=== PATIENT | male | born 1970 | race Caucasian/White ===

== ENCOUNTER 2023-11-14 01:26 | Emergency (ER) | payer BC, SELFPAY ==
[2023-11-14] VITALS (7 sets, daily range): BP systolic 119–144; BP diastolic 67–99; PULSE 63–81; RESP 16–19; O2SAT 98–100
--- NOTE | ~2023-11-14 | XR_ITS ---
EXAMINATION: XR chest 1V portable DATE: 11/14/2023 02:02 INDICATION: Chest pain and tightness TECHNIQUE: AP view of the chest was obtained. COMPARISON: Chest CT dated 11/14/2023 FINDINGS: No evident airspace opacities, pulmonary edema, pleural effusion or pneumothorax. A lingular region o f consolidation consistent with pneumonia seen on subsequent CT projects over the left hilum and is i ndiscernible on the current AP radiograph. The cardiomediastinal silhouette is normal. Mild thoracic dextrocurvature with mild spondylosis. IMPRESSION: 1. Lingular pneumonia seen on subsequent chest CT is indiscernible on the current radiograph. Reviewed, dictated and finalized at location A. IMPRESSION: 1. Lingular pneumonia seen on subsequent chest CT is indiscernible on the [facility] nt radiograph.
--- NOTE | ~2023-11-14 | CT_ITS ---
EXAMINATION: CTA chest PE abdomen pel DATE: 11/14/2023 03:58 INDICATION: Chest tightness. Elevated lipase. TECHNIQUE: Computed tomography (CT) pulmonary angiogram of the chest was performed with 100 mL Omnipa que-350 intravenous contrast. Additional 3D reconstructions utilizing coronal maximum intensity proje ction (MIP) were performed. CT of the abdomen and pelvis was performed with intravenous contrast util izing the same contrast bolus following a short delay. Automated exposure control and iterative recon struction technique were employed. The dose-length product was 1075.34 mGy-cm. COMPARISON: None FINDINGS: Chest: Excellent contrast opacification of the pulmonary arteries demonstrating no pulmonary embolism. Mild groundglass opacity and a few small centrilobular nodules along side a small region of consolidation in the paramediastinal superior segment of the lingula consistent with pneumonia. Remainder of the julieta ngs are clear. No pulmonary edema or pleural effusion. Heart size is normal. Thoracic aorta is normal in caliber with no dissection. No pathologically enlarged thoracic lymphadenopathy. Mild thoracic sp ondylosis with chronic mild anterior wedging of a few mid and lower thoracic vertebral bodies. Abdomen/pelvis: Liver, gallbladder, spleen, pancreas, bilateral adrenal glands and kidneys are normal. Incidentally n oted circumaortic anterior and posterior left renal veins. Bowels including the appendix are normal. Bladder is normal. Prostatomegaly measuring 5.0 x 3.3 cm. No free intraperitoneal gas or fluid. No pa thologically enlarged abdominal or pelvic lymphadenopathy. Mild thoracolumbar levocurvature with mild to moderate spondylosis. IMPRESSION: 1. Lingular pneumonia. 2. No pulmonary embolism or acute intra-abdominal/pelvic process. Reviewed, dictated and finalized at location A.
--- NOTE | 2023-11-14 01:33 | ECG_ITS ---
Test Date: 2023-11-14 01:44:20 Measurements Intervals [place] Rate: 74 P: 0 NE: 0 QRS: 85 QRSD: 91 T: 41 QT: 360 QTc: 402 Interpretive Statements SUPRAVENTRICULAR RHYTHM ATYPICAL ECG No previous ECG available for comparison Electronically Signed On 11-14-2023 11:21:11 CDT by Carlin Kimbrough M.D.
[2023-11-14] MEDS: ASPIRIN 81 MG CHEWABLE TABLET 324 MG PO (01:49)
[2023-11-14 01:58] LABS: Alanine Aminotransferase 29 U/L (6-50); Albumin Level 4.6 g/dL (3.5-5.1); Alkaline Phosphatase 72 U/L (38-126); Anion Gap 7 mmol/L (4-12); Aspartate Amino Transferase 33 U/L (17-59); Blood Urea Nitrogen 18 mg/dL (9-20); Calcium 9.3 mg/dL (8.4-10.2); Carbon Dioxide 28 mmol/L (22-30); Chloride 103 mmol/L (98-107); Estimated CRCL calculation 97 ml/min; Estimated Glomerular Filt Rate > 60; Glucose 105 mg/dL (65-110); Lipase 423 U/L (23-300); Potassium 4.4 mmol/L (3.4-5.0); Sodium 138 mmol/L (137-145)
[2023-11-14 02:04] LABS: Prothrombin Time 13.8 Seconds (11.1-14.7)
[2023-11-14 02:05] LABS: Partial Thromboplastin Time 31.7 Seconds (22.3-36.8)
[2023-11-14 02:09] LABS: Troponin I < 0.012 ng/mL (0.000-0.034)
[2023-11-14 02:49] LABS: Basophils Absolute Auto 0.1 K/mm3 (0.0-0.1); Basophils Percent Auto 0.4 % (0.2-1.2); Eosinophils Absolute Auto 0.3 K/mm3 (0-0.3); Eosinophils Percent Auto 2.3 % (0-4.4); Hematocrit 40.4 % (42.0-52.0); Hemoglobin 13.9 g/dL (14.0-18.0); Immature Granulocyte Absolute 0.05 K/mm3 (0.00-0.031); Immature Granulocyte Percent A 0.4 % (0-0.5); Lymphocytes Absolute Auto 1.71 K/mm3 (0.9-3.2); Lymphocytes Percent Auto 12.4 % (18.3-44.2); Mean Corpuscular HGB Conc 34.4 g/dl (32-36); Mean Corpuscular Hemoglobin 30.8 pg (26-34); Mean Corpuscular Volume 89.6 fl (80-100); Mean Platelet Volume 9.7 fl (7.4-10.4); Monocytes Absolute Auto 1.5 K/mm3 (0.1-0.6); Monocytes Percent Auto 10.8 % (2.6-8.5); Neutrophils Absolute Auto 10.1 K/mm3 (1.3-6.7); Neutrophils Percent Auto 73.7 % (45.5-73.1); Platelet Count Result 60 k/mm3 (150-375); Red Blood Count 4.51 M/mm3 (4.6-6.20); Red Cell Distribution Width 12.2 % (11.5-14.5); White Blood Count 13.7 K/mm3 (4.5-10.0)
--- NOTE | 2023-11-14 03:48 | ED.GENADULT ---
HPI - General Adult General Chief complaint: Chest Pain <Braden Oconnell MD - Last Filed: 11/14/23 03:49> Stated complaint: chest pain <Braden Oconnell MD - Last Filed: 11/14/23 03:49> Time Seen by Provider: 11/14/23 01:41 <Braden Oconnell MD - Last Filed: 11/14/23 03:49> History of Present Illness HPI narrative: Patient is a 53-year-old gentleman presents emergency department with chief complaint of chest pain. Patient reports that around 11:00 p.m. he started having tightness in his chest patient reports he has been doing a lot more exercise lately did some chest work patient reports no prior history of cardiac disease but does report that he has history of hypertension. The patient reports some has been several years since he has had a stress test the patient rib does report the pain is doing little bit better now that he is here in the emergency department. <Bradne Oconnell MD - Last Filed: 11/14/23 03:49> Related Data Home medications: Home Medications Medication Instructions Recorded Confirmed fluticasone propionate 50 1 spray intranasal BID 10/26/23 10/26/23 mcg/actuation nasal spray,suspension (Flonase Allergy Relief) <Braden Oconnell MD - Last Filed: 11/14/23 03:49> Allergies/adverse reactions: Allergies Allergy/AdvReac Type Severity Reaction Status Date / Time No Known Allergies Allergy Verified 10/26/23 08:15 <Braden Oconnell MD - Last Filed: 11/14/23 03:49> Review of Systems Review of Systems: A 10 system review of systems was completed on the patient and is negative except for what is stated in the HPI. Nursing and ancillary documentation was reviewed. <Braden Oconnell MD - Last Filed: 11/14/23 03:49> PMFSH Past Medical History Medical History: Medical History Elevated WBC count Encounter for wellness examination Encounter to establish care Essential (primary) hypertension Impacted cerumen of left ear Long-term current use of testosterone replacement therapy Male erectile dysfunction, unspecified Otitis media with effusion Rising PSA level Skin lesions Testicular hypogonadism <Braden Oconnell MD - Last Filed: 11/14/23 03:49> Surgical History Surgical History: Surgical History H/O hernia repair History of placement of ear tubes <Braden Oconnell MD - Last Filed: 11/14/23 03:49> Family History Family History: Family History Sibling Hypertension Father Bladder cancer Other Diabetes mellitus <Braden Oconnell MD - Last Filed: 11/14/23 03:49> Social History Social History: Social History Smoking status: Never smoker Second hand tobacco smoke exposure: No Alcohol intake: never Substance use: never Substance use type: does not use Lack of Transportation: No Lack of Food: Never True Current Housing: I Have Housing Concerned About Future Housing: No Difficulty Paying Gas/Electric Bills: No Difficulty Paying for Meds: No Currently Unemployed: No Education: Associate Degree Difficulty w/ Childcare or Family Care: No <Braden Oconnell MD - Last Filed: 11/14/23 03:49> Exam Narrative: GENERAL: Well-appearing, well-nourished, and in no acute distress. HEAD: Normocephalic, atraumatic. EYES: PERRLA and EOMI. ENT: Nares clear, no rhinorrhea or epistaxis. Mucous membranes moist. NECK: Supple. CHEST: Clear to auscultation. No respiratory distress. HEART: Regular rate and rhythm. No murmur heard. Normal peripheral pulses. ABDOMEN: Soft, nontender, nondistended, normal active bowel sounds. EXTREMITIES: Normal range of motion. No edema. SKIN: Wa
--- NOTE | 2023-11-14 04:18 | ECG_ITS ---
Test Date: 2023-11-14 04:25:45 Measurements Intervals [place] Rate: 65 P: 55 GA: 263 QRS: 86 QRSD: 84 T: 52 QT: 366 QTc: 381 Interpretive Statements SINUS RHYTHM WITH FIRST DEGREE AV BLOCK Compared to ECG 11/14/2023 01:44:20 NO CHANGE SINCE PREVIOUS ECG Electronically Signed On 11-14-2023 11:22:00 CDT by Carlin Kimbrough M.D.
[2023-11-14 04:47] LABS: Troponin I < 0.012 ng/mL (0.000-0.034)
[2023-11-14] MEDS: AMOXICILLIN/CLAVULANATE K 875-125 MG TAB 1 TABLET PO (07:36)
[2023-11-14] MEDS: AZITHROMYCIN 250 MG TABLET 500 MG PO (07:36)
== END 2023-11-14 07:37 | disposition home or self-care (01) ==
PROVIDERS: Emergency Provider Emergency Medicine; PCP Nurse Practitioner Family
DX: J18.9 Pneumonia, unspecified organism (principal); I10 Essential (primary) hypertension
CPT/HCPCS: 36415; 71045; 71275; 74177; 80053; 83690; 84484; 85025; 85055; 85610; 85730; 93005; 99284; A9270; Q9967

== ENCOUNTER 2024-12-13 10:52 | Outpatient (CLI) | payer BC, SELFPAY ==
--- OUTSIDE RECORDS SUMMARY | 2024-12-13 10:57 | XMS_ITS | Clinical Summary ---
Author Organization [facility]iz Address [address] [facility] [place] [address] Care Team Providers Care Ecdis N Navigation Operator Name Role Phone Unavailable Primary Care Provider Unavailabl e Allergies No known active allergies Medications valsartan (DIOVAN) 160 mg tablet Take 1 Tablet by mouth daily. 10/24/2024 Active sildenafiL (VIAGRA) 100 mg tablet Take 100 mg by mouth 1 time daily as needed for Erectile Dysfunction. Active multivitamin (DAILY-EDU) tablet Take 1 Tablet by mouth daily. Active OMEGA-3 FATTY ACIDS-FISH OIL ORAL Take by mouth daily. Active Active Problems No known active problems Encounters Date Type Department Care Team Description 12/13/2024 10:30 AM CDT Office Visit [facility] Oncology and Hematology - [place] [address] [address] Alonso Cisneros MD Chronic anemia (Primary Dx); Other secondary thrombocytopenia; Splenomegaly from Last 3 Months Family History Medical History Relation Name Comments No Known Problems Brother bladder cancer Father No Known Problems Mother Relation Name Status Comments Brother Alive Father Mother Alive Social History Tobacco Use Types Packs/Day Years Used Date Smoking Tobacco: Never Smokeless Tobacco: Never Tobacco Cessation:Counseling Given: Not Answered Alcohol Use Standard Drinks/Week Comments Never 0 (1 standard drink = 0.6 oz pur e alcohol) Sex and Gender Information Value Date Recorded Sex Assigned at Not on file Legal Sex Male 3:54 PM CDT Gender Identity Not on file Sexual Orientation Not on file Last Filed Vital Signs Vital Sign Reading Time Taken Comments Blood Pressure 123/77 12/13/2024 10:11 AM CDT Pulse 58 12/13/2024 10:11 AM CDT Temperature 36.6 C (97.8 F) 12/13/2024 10:11 AM CDT Respiratory Rate 16 12/13/2024 10:11 AM CDT Oxygen Saturation 97% 12/13/2024 10:11 AM CDT Inhaled Oxygen Concentration - - Weight 89.4 kg (197 lb 3.2 oz) 12/13/2024 10:11 AM CDT Height 190.5 cm (6' 3) 12/13/2024 10:11 AM CDT Body Mass Index 24.65 12/13/2024 10:11 AM CDT Plan of Treatment Upcoming Encounters Date Type Department Care Team (Late st Contact Info) Description 12/29/2024 4:30 PM CDT Telephone Check Up [facility] Oncology and Hematology - [place] [address] [facility] [address] [place] [address] Alonso Cisneros MD [address] [facility] [address] [place] [address] Health Maintenance Due Date Last Done Comments DTAP/TDAP/TD VACCINES (1 - Tdap) 1987 HEPATITIS B VACCINES (1 of 3 - 19+ 3-dose series) 02/16 COLORECTAL SCREENING 2013 Colorectal Cancer Screening 2013 FIT-DNA Q 3 years 2013 FIT/FOBT Q 1 year 2013 Flex Sig/CT Colonography Q 5 years 2013 ZOSTER VACCINE (1 of 2) 2018 Preventative Visit- Commercial 05/18/2024 INFLUENZA VACCINE (#1) 2024 02/18/2019 Insurance [facility]
--- OUTSIDE RECORDS SUMMARY | 2024-12-13 10:57 | XMS_ITS | Clinical Summary ---
Author Organization [facility] Health Address [address] [place] [address] Care Team Providers Care Regulatory And Compliance Technician Name Role Phone Unavailable Primary Care Provider Unavailabl e Social History Tobacco Use Types Packs/Day Years Used Date Smoking Tobacco: Never Assessed Sex and Gender Information Value Date Recorded Sex Assigned at Not on file Legal Sex Male 12:42 AM PST Gender Identity Not on file Sexual Orientation Not on file Plan of Treatment Not on file
--- OUTSIDE RECORDS SUMMARY | 2024-12-13 10:57 | XMS_ITS | Clinical Summary ---
Author Organization [facility] Address [address] [place] [address] Care Team Providers Care Mold Construction Supervisor Name Role Phone Unavailable Primary Care Provider Unavailabl e Social History Tobacco Use Types Packs/Day Years Used Date Smoking Tobacco: Never Assessed Sex and Gender Information Value Date Recorded Sex Assigned at Not on file Legal Sex Male 7:36 PM CDT Gender Identity Not on file Sexual Orientation Not on file Plan of Treatment Health Maintenance Due Date Last Done Comments Colorectal Cancer Screening Colonoscopy (10 Years) 1968 Annual Physical 1971 Hepatitis C 1986 DTaP, Tdap and Td Vaccines ( 1 - Tdap) 1987 Hepatitis B Vaccines (1 of 3 - 19+ 3-dose series) 1987 Pneumococcal Vaccine: 50+ Ye ars (1 of 1 - PCV) 2018 Zoster Vaccines (1 of 2) 2018 COVID-19 Vaccine (2023-2 5 season) 2024 Meningococcal B Vaccine Aged Out No l onger eligible based on patient's age to complete this topic Meningococcal Vaccine Aged Out No vilma dru eligible based on patient's age to complete this topic RSV Immunizations Under 20 Months Aged Out No longer eligible based on patient's age to complete this topic
--- OUTSIDE RECORDS SUMMARY | 2024-12-13 10:57 | XMS_ITS | Encounter Summary ---
Author Organization [facility] SHREE Colbert [facility] Address [address] [place] [address] Care Team Providers Care Citrus Fruit Packer Name Role Phone Unavailable Primary Care Provider Unavailabl e Reason for Referral * CT Scan (Routine) - Pending Review Specialty Diagnoses / Procedures Referred By Mario t Referred To Contact Diagnoses Other secondary thrombocytopenia Splenomegaly Procedures CT ABDOMEN PELVIS W CONTRAST Alonso Cisneros MD [address] [place] [address] Phone: tel: fax: [place] [phone] Referral ID Status Reason Start Date Expiration Date Visits Requested Visits Authorized [id number] Pending Review [facility] CTS 12/13/2024 01/13/2026 1 1 Encounter Details Date Type Department Care Team (Late st Contact Info) Description 12/13/2024 10:30 AM CDT Office Visit [facility] Oncology and Hematology [facility] [address] [facility] [address] [place] [address] Alonso Cisneros MD [address] [place] [address] Chronic anemia (Primary Dx); Other secondary thrombocytopenia; Splenomegaly Social History Tobacco Use Types Packs/Day Years [...] on file Sexual Orientation Not on file documented as of this encounter Last Filed Vital Signs Vital Sign Reading [...] Mass Index 24.65 12/13/2024 10:11 AM CDT documented in this encounter Plan of Treatment Upcoming Encounters Date Type Department Care Team (Late st Contact Info) Description 12/29/2024 4:30 PM CDT Telephone Check Up [facility] Oncology and Hematology - [place] [address] [place] [address] [address] [place] [address] Alonso Cisneros MD [address] [facility] [address] [place] [address] Scheduled Orders Name Type Priority Associated Diagnoses Orde r Schedule CBC WITH DIFFERENTIAL Lab Stat Chronic anemia Expected: 12/13/2024, Expires: 12/13/2025 COMPREHENSIVE METABOLIC PANEL Lab Stat Chronic anemia Expected: 12/13/2024, Expires: 12/13/2025 FERRITIN Lab Routine Chronic anemia Expected: 12/13/2024, Expires: 12/13/2025 IRON, TIBC, AND PERCENT SATURATION Lab Routine Chronic anemia Expected: 12/13/2024, Expires: 12/13/2025 VITAMIN B12 AND FOLATE Lab Routine Chronic anemia Expected: 12/13/2024, Expires: 12/13/2025 METHYLMALONIC ACID Lab Routine Chronic anemia Expected: 12/13/2024, Expires: 12/13/2025 TRANSFERRIN RECEPTOR TFR SOLUBLE Lab Routine Chronic anemia Expected: 12/13/2024, Expires: 12/13/2025 MISCELLANEOUS LAB TEST Lab Routine Other secondary thrombocytopenia Expected: 12/13/2024, Expires: 12/13/2025 CT ABDOMEN PELVIS W CONTRAST Imaging Routine Other secondary thrombocytopenia Splenomegaly Expected: 12/14/2024, Expires: 12/13/2025 documented as of this encounter Visit Diagnoses Diagnosis Chronic anemia- Primary Anemia, unspecified Other secondary thrombocytopenia Splenomegaly documented in this encounter
--- OUTSIDE RECORDS SUMMARY | 2024-12-13 10:57 | XMS_ITS | Encounter Summary ---
Author Organization [facility] Address [address] [place] [address] Care Team Providers Care Door Clamper Name Role Phone Unavailable Primary Care Provider Unavailabl e Encounter Details Date Type Department Care Team (Late st Contact Info) Description 01/02/2022 Lab Requisition [facility] DermPath Lab [address] [facility] [place] [address] Baljeet Lindquist MD [address] [place] [address] Social History Tobacco Use Types Packs/Day Years Used Date Smoking Tobacco: Never Assessed Sex and Gender Information Value Date Recorded Sex Assigned at Not on file Legal Sex Male 12:51 PM CDT Gender Identity Not on file Sexual Orientation Not on file documented as of this encounter Plan of Treatment Not on file documented as of this encounter Procedures Procedure Name Priority Date/Time Associated Diagnosis Comments DERMATOPATHOLOGY Routine 01/01/2022 12:0 0 AM CDT documented in this encounter Results * DERMATOPATHOLOGY (01/01/2022 12:00 AM CDT) Case Report Dermatopathology Report Case: [id number] Authorizing Provider: Baljeet Lindquist MD Collected: 01/01/2022 12:00 AM Ordering Location: [facility] DermPath Lab Received: 01/02/2022 01:04 PM Pathologist: Tim Rodas MD Specimen: Skin, sup edge left areola 2 5:09 PM CDT DERMATOPATHOLOGY LABORATORY Final Diagnosis Specimen A. 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 The specimen consists of a punch biopsy measuring [id number] and it is bisected. Jar 0. 2 5:09 PM CDT DERMATOPATHOLOGY LABORATORY Microscopic Description Specimen A. SKIN, sup edge left areola: Sections show a proliferation of blood vessels in lobules lined by uniform endothelial cells and by fibrous septa. 2 5:09 PM CDT DERMATOPATHOLOGY LABORATORY Disclaimer An external and internal positive and negative controls are appropriate for the histochemical, immunohistochemical and immunofluorescence stain(s) in this case (if any), except where stated explicitly. The performance characteristics of the stain(s) cited in this report were developed and its performance characteristic determined by the Dermatopathology Laboratory at [facility], directed by Dr. Tato Rodas. These tests need not be, and therefore are not, approved by the [place] Food and Drug Administration. The tests are used for clinical purposes. Billing Codes Specimen Charges Stain Charges 00699 1 2 5:09 PM CDT DERMATOPATHOLOGY LABORATORY Embedded Images 2 5:09 PM CDT DERMATOPATHOLOGY LABORATORY Pathology/Cytolog y TISSUE SPECIMEN FROM SKIN / Unknown 01/01/2022 01/02/2022 1:04 PM CDT Baljeet Lindquist MD LAB - PATHOLOGY/CYTOLOGY ORD ERABLES Final Result DERMATOPATHOLOGY LABORATORY [facility] - Department of Dermatology [address] [place] [address], [facility] [phone] documented in this encounter Visit Diagnoses Not on filedocumented in this encounter
--- OUTSIDE RECORDS SUMMARY | 2024-12-13 10:57 | XMS_ITS | Encounter Summary ---
Author Organization [facility] Health Address [address] [place] [address] Care Team Providers Care Senior Policy Analyst Name Role Phone Unavailable Primary Care Provider Unavailabl e Prior Encounters Date Type Department Care Team Description 06/06/2019 Converted CPS Chart Documents [facility] [address] [place] [address] <No scans attached> 06/06/2019 Converted 13x Documents [facility] [address] [place] [address] <No scans attached> Plan of Treatment Not on file Procedures Procedure Name Priority Date/Time Associated Diagnosis Comments PERIO CONSULT Routine 04/07/2018 2:00 AM SALT MAKER 20 FREE SOFT TISSUE GRAFT PROCEDUREEACH ADDITIONAL CONTIGUOUS SITE Routine 04/07/2018 2:00 AM SALT MAKER 19 FREE SOFT TISSUE GRAFT PROCEDUREFIRST TOOTH, IMPLANT OR EDENTULOUS TOOTH POSITION IN GRAFT Routine 04/07/2018 2:00 AM SALT MAKER Visit Diagnoses Not on file
--- OUTSIDE RECORDS SUMMARY | 2024-12-13 10:57 | XMS_ITS | Clinical Summary ---
Author Organization [facility] Address [address] [place] [address] Care Team Providers Care Optometrist Assistant Name Role Phone Unavailable Primary Care Provider Unavailabl e Source Comments [facility],non-owned Affiliates and Associated Physician Practices is amultiple site organization consisting of ambulatory clinics and hospital sitesin [place], [place], [place] and [place]. This disclosure is being madepursuant to the Care Everywhere program and may not contain all information available regarding this patient. Last updated 18.[facility] Social History Tobacco Use Types Packs/Day Years Used Date Smoking Tobacco: Never Assessed Sex and Gender Information Value Date Recorded Sex Assigned at Not on file Legal Sex Male 12:51 PM CDT Gender Identity Not on file Sexual Orientation Not on file Plan of Treatment Health Maintenance Due Date Last Done Comments COLOGUARD (AGES 45-75) - COL ON CA SCREENING 1968 COLON MONITORING 1968 COLONOSCOPY - COLON CA SCREENING 1968 CT COLONOGRAPHY - COLON CA SCREENING 1968 Colorectal Cancer Screening 1968 FIT - COLON CA SCREENING 1968 FLEX SIG - COLON CA SCREENING 1968 LIPID TESTING 1968 HIV SCREENING 1983 HEPATITIS C SCREENING 03/02/1986 DTAP/TDAP/TD VACCINES (1 - Tdap) 1987 HEPATITIS B VACCINE (1 of 3 - 19+ 3-dose series) 1987 PNEUMOCOCCAL VACCINE 50+ (1 of 1 - PCV) 2018 ZOSTER VACCINE (1 of 2) 2018 COVID-19 VACCINE ( - 2023-2 5 season) 2024 DEPRESSION SCREENING 05/18/2024 INFLUENZA VACCINE (#1) 2025 HIB VACCINE Aged Out No longer eligi ble based on patient's age to complete this topic HPV VACCINE Aged Out No longer eligi ble based on patient's age to complete this topic MENINGOCOCCAL (Group B) VACC INE SHARED DECISION-MAKING Aged Out No longer eligibl e based on patient's age to complete this topic MENINGOCOCCAL GROUPS A/C/Y/W VACCINE Aged Out No longer eligible b ased on patient's age to complete this topic Insurance
[2024-12-13 11:22] LABS: Hematocrit 46.1 % (42.0-52.0); Hemoglobin 15.9 g/dL (14.0-18.0); Immature Granulocyte Percent A 0.5 % (0-0.5); Immature Platelet Fraction Pct 4.4 % (0.9-11.2); Lymphocytes Absolute Auto 2.26 K/mm3 (0.9-3.2); Mean Corpuscular HGB Conc 34.5 g/dl (32-36); Mean Corpuscular Hemoglobin 30.9 pg (26-34); Mean Corpuscular Volume 89.7 fl (80-100); Nucleated Red Blood Cells Absolute Auto 0.000 K/mm3 (0.0-0.012); Nucleated Red Blood Cells Perc 0.0 % (0.0-0.2); Platelet Count Result 57 k/mm3 (150-375); Red Blood Count 5.14 M/mm3 (4.6-6.20); White Blood Count 9.8 K/mm3 (4.5-10.0)
[2024-12-13 12:46] LABS: Iron 85 ug/dL (49-181)
[2024-12-13 12:48] LABS: Alanine Aminotransferase 30 U/L (6-50); Albumin Level 4.9 g/dL (3.5-5.1); Alkaline Phosphatase 83 U/L (38-126); Anion Gap 7 mmol/L (4-12); Aspartate Amino Transferase 41 U/L (17-59); Bilirubin,Total 0.5 mg/dL (0.2-1.3); Blood Urea Nitrogen 13 mg/dL (9-20); Calcium 10.1 mg/dL (8.4-10.2); Carbon Dioxide 31 mmol/L (22-30); Chloride 99 mmol/L (98-107); Estimated Glomerular Filt Rate > 60; Glucose 95 mg/dL (65-110); Potassium 4.6 mmol/L (3.4-5.0); Sodium 137 mmol/L (137-145); Total Protein 8.4 g/dL (6.3-8.2)
[2024-12-13 12:56] LABS: Percent Iron Saturation 22 % (20-50)
[2024-12-13 17:32] LABS: Ferritin 50.00 ng/mL (11.1-264)
[2024-12-13 17:45] LABS: Vitamin B12 909.0 pg/mL (239-931)
== END 2024-12-13 10:53 | disposition home or self-care (01) ==
PROVIDERS: PCP Nurse Practitioner Family; Visit Provider Internal Medicine Hematology & Oncology
DX: D64.9 Anemia, unspecified (principal); D69.59 Other secondary thrombocytopenia
CPT/HCPCS: 36415; 80053; 82607; 82728; 82746; 83540; 83550; 83921; 84238; 85025; 85055; 86022